=== PATIENT | male | born 1965 | race Caucasian/White ===

== ENCOUNTER 2018-10-13 09:11 | Day surgery (SDC) | payer OTHER ==
[~2018-10-13] VITALS: Ht 182.9 cm; Wt 112.5 kg
[~2018-10-13 09:11] MED LIST: AMOXICILLIN500 MG PO; GLIPIZIDE10 MG PO; GLUCOPHAGE500 MG PO; METFORMIN HCL500 MG PO; NAPROXEN500 MG PO; SIMVASTATIN20 MG PO
--- NOTE | 2018-10-13 11:32 | NUR ---
10/13/18 1132 Rebekah Paredes 1125-PATIENT ARRIVED TO PACU ON 2L NC RR EVEN. SNORING. AROUSES TO VERBAL STIMULI ORIENTED TO PACU ABDOMEN SOFT. LAYING LEFT LATERAL. DOZES BACK TO SLEEP. PASSING GAS. GLUCOSE 91
--- NOTE | 2018-10-14 07:47 | OR ---
[facility] [address], [place] [address] Signed DATE OF OPERATION: 10/13/2018 SURGEON: Delma Cevallos MD PREOPERATIVE DIAGNOSIS: Screening. POSTOPERATIVE DIAGNOSES: 1. 5 mm polyps at distal right colon, 110 cm, 105 cm, 95 cm, and 35 cm. 2. Wvokdca-kv-nzliycko left-sided diverticulosis. 3. Small internal anal skin tag x2. PROCEDURE PERFORMED: Colonoscopy with hot biopsy. ESTIMATED BLOOD LOSS: None. INDICATIONS: Valorie Page is a 52-year-old diabetic gentleman asked to see me for his initial screening colonoscopy. He told me he has no lower GI complaints. There is no family history of colon cancer or polyps. In the office, I gave him a pamphlet on colonoscopy. We looked at the nature of the test along with the risks including, but not limited to gas bloating, crampy abdominal pain, bleeding, perforation, requiring surgery, and missed diagnosis. We also discussed the need for IV conscious sedation. He had expressed understanding and wished to proceed. PROCEDURE NOTE: Valorie Page was taken into our endoscopy suite and placed in the left lateral decubitus position. He was given IV sedation with 10 mg of Versed and 100 mcg of fentanyl. A digital rectal exam was performed and this showed a slightly enlarged indurated prostate. The left is a little more prominent than the right. After this, the adult colonoscope was introduced and advanced all around into the cecum under direct visualization of camera without difficulty. His prep was good. We have taken pictures throughout for photodocumentation. The scope was slowly withdrawn. The above-mentioned polyps were easily removed with the help of hot biopsy forceps. We also saw diverticula in the left and sigmoid colon. They were minimal to moderate in size, minimal to moderate in number, and scattered about. Once in the rectum, the scope was then retroflexed and he has just two tiny internal anal skin tags. After this, the gas was suctioned out and colonoscope removed. Valorie Page tolerated the procedure quite well. Electronically Signed By: DELMA CEVALLOS MD 10/14/18 0747 PATIENT NAME: Valorie HERNANDEZ OPERATIVE REPORT DATE OF : 69 REPORT #: [id number] PHYSICIAN: DELMA CEVALLOS MD PCP: LORETTA BOB MD REPORT IS CONFIDENTIAL AND NOT TO BE RELEASED WITHOUT AUTHORIZATION [address] [address] Signed RECOMMENDATIONS: I will see Valorie Page back in my office in 7 to 14 days to review his results. Delma Cevallos MD ALB/LORENAL /[id number] cc: MD Loretta Black MD Copies: DELMA CEVALLOS MD, RUSSELL BARR MD ~ Electronically Signed By: DELMA CEVALLOS MD 10/14/18 0747 PATIENT NAME: Valorie HERNANDEZ OPERATIVE REPORT DATE OF : 69 REPORT #: [id number] PHYSICIAN: DELMA CEVALLOS MD PCP: LORETTA BOB MD REPORT IS CONFIDENTIAL AND NOT TO BE RELEASED WITHOUT AUTHORIZATION
== END 2018-10-13 14:07 | disposition home or self-care (01) ==
LOC: OPS 09:11 → DS 09:11 → OPS 10:30
PROVIDERS: Colon & Rectal Surgery
PROC: 0DBE8ZZ Excision of Large Intestine, Via Natural or Artificial Opening Endoscopic (ICD-10-PCS; 2018-10-13)
PROC: 0DBK8ZZ Excision of Ascending Colon, Via Natural or Artificial Opening Endoscopic (ICD-10-PCS; principal; 2018-10-13 10:30)
DX: Z12.11 Encounter for screening for malignant neoplasm of colon (principal); D12.2 Benign neoplasm of ascending colon; D12.6 Benign neoplasm of colon, unspecified; K63.5 Polyp of colon; K57.30 Diverticulosis of large intestine without perforation or abscess without bleeding; K64.4 Residual hemorrhoidal skin tags; E11.9 Type 2 diabetes mellitus without complications; E78.5 Hyperlipidemia, unspecified
CPT/HCPCS: 99153; G0500; J2250; J3010; J7120